=== PATIENT | male | born 1970 | race African-American/Black ===

== ENCOUNTER 2024-09-06 19:30 | Emergency (ER) | payer OTHER ==
[2024-09-06] MEDS ORDERED: Ketorolac Tromethamine 30 MG (1 mL) VIAL ONE (20:16)
[2024-09-06] MEDS ORDERED: HYDROcodone/Acetaminophen 5/325 mg Tablet ONE (20:16)
== END 2024-09-06 22:22 | disposition home or self-care (01) ==
LOC: ERS 19:30
DX: R60.0 Localized edema (principal); I10 Essential (primary) hypertension; Z55.6 Problems related to health literacy
CPT/HCPCS: 96372; 99283; J1885